=== PATIENT | male | born 1955 | race Caucasian/White ===

== ENCOUNTER 2021-10-13 12:32 | Emergency (ER) | payer BC ==
[~2021-10-13] VITALS: Ht 177.8 cm; Wt 81.7 kg
[2021-10-13 12:40] VITALS: BP 129/72
== END 2021-10-13 13:19 | disposition home or self-care (01) ==
LOC: ER 12:32
DX: S61.011A Laceration without foreign body of right thumb without damage to nail, initial encounter (principal); Z91.09 Other allergy status, other than to drugs and biological substances; W26.0XXA Contact with knife, initial encounter; Y93.89 Activity, other specified; Y92.89 Other specified places as the place of occurrence of the external cause; Y99.8 Other external cause status